=== PATIENT | female | born 1995 | race African-American/Black ===

== ENCOUNTER 2017-10-20 02:13 | Emergency (ER) | END 2017-10-20 04:05 | disposition home or self-care (01) ==

== ENCOUNTER 2017-10-28 02:24 | Emergency (ER) | END 2017-10-28 05:31 | disposition home or self-care (01) ==

== ENCOUNTER 2017-11-19 20:56 | Emergency (ER) | END 2017-11-20 00:41 | disposition home or self-care (01) ==